=== PATIENT | female | born 1945 | race Caucasian/White ===

== ENCOUNTER 2016-11-04 08:16 | Day surgery (SDC) | payer MEDICARE ==
[~2016-11-04] VITALS: Ht 170.2 cm; Wt 95.9 kg
[2016-11-04] VITALS (9 sets, daily range): BP systolic 135–145; BP diastolic 16–94; PULSE 4–66; RESP 10–18; O2SAT 93–98
[2016-11-04] MEDS: Lactated Ringer's 1,000 ML IV SCH ×3 (07:35→10:08)
[~2016-11-04 08:16] MED LIST: ASPI-973 PO; TRIA1CAP5 PO
[2016-11-04] MEDS ORDERED: Ondansetron 2 mg/mL 2 mL Inj ONE (08:17)
[2016-11-04] MEDS ORDERED: fentaNYL-PF 50 mCg/mL 2 mL Inj ONE (08:17)
[2016-11-04] MEDS ORDERED: MetoCLOpramide 5 mg/mL 2 mL Inj ONE (08:17)
[2016-11-04] MEDS ORDERED: EPHEDrine/NS 5 mg/mL 5 mL Syringe ONE (08:17)
[2016-11-04] MEDS ORDERED: Propofol 10,000 mCg/mL 20 mL Inj ONE (08:17)
[2016-11-04] MEDS ORDERED: IBUP1TAB10 PO (08:30)
[2016-11-04 09:01] LABS: BASOPHILS % (AUTO) 0.3 % (0-3); EOSINOPHILS % (AUTO) 1.2 % (0-5); MONOCYTES % (AUTO) 4.8 % (4-12); Mean Corpuscular Hemoglobin 30.2 pg (27.0-35.0); Mean Corpuscular Volume 89.1 fL (81-100); NEUTROPHILS % (AUTO) 66.8 % (40-74); Platelet Count 243 bil/L (150-400)
[2016-11-04] MEDS ORDERED: Lactated Ringer's 1,000 ML IV SCH (10:19)
[2016-11-04] MEDS ORDERED: Lactated Ringer's 500 ML IV PRN (10:19)
[2016-11-04] MEDS ORDERED: MetoCLOpramide 5 mg/mL 2 mL Inj IVPUSH PRN ×2 (10:20→11:05)
[2016-11-04] MEDS ORDERED: Labetalol 5 mg/mL 4 mL Inj IV PRN (10:20)
[2016-11-04] MEDS ORDERED: Phenylephrine 10,000 mCg/mL Inj IVPUSH PRN (10:20)
[2016-11-04] MEDS ORDERED: HYDROmorphone 1 mg/mL Inj IVPUSH PRN ×2 (10:20→11:05)
[2016-11-04] MEDS ORDERED: Atropine 0.4 mg/mL Inj IVPUSH PRN (10:20)
[2016-11-04] MEDS ORDERED: EPHEDrine Sulfate 50 mg/mL Inj IVPUSH PRN (10:20)
[2016-11-04] MEDS ORDERED: Ondansetron 2 mg/mL 2 mL Inj IVPUSH PRN ×2 (10:20→11:05)
[2016-11-04] MEDS ORDERED: fentaNYL-PF 50 mCg/mL 2 mL Inj IVPUSH PRN (10:20)
--- NOTE | 2016-11-04 10:23 | PCM.HPANE ---
Patient Data Surgeon Admitting Provider: Attending Provider:Nicole Warren MD Primary Care Physician:Jayesh Rawls MD Other Provider:Linda Boltoningham Anesthesia Reason for Visit Postmenopausal Bleeding Ht/WT & BMI Height (Feet): 5 Height (Inches): 7.00 Weight (Kilograms): 95.9 Body Mass Index 33.00 Allergies Coded Allergies: latex (Verified Allergy, Unknown, UNKNOWN, 11/02/16) omeprazole (Verified Allergy, Unknown, UNKNOWN, 11/02/16) Past Anesthesia History Anesthesia History: Denies:: Abnormal Airway, Anesthesia Reactions, Difficult Intubation, Fam Anesthesia Reaction, Fam Malignant Hypertherm, Malignant Hyperthermia Diabetes History Hx Diabetes?: No Current Bedside Blood Glucose: 126 MRSA MRSA: No Medications Home Meds Incl Beta Elton: No Reported Medications Ibuprofen/Diphenhydramine Cit (Advil Pm Caplet)1 Each Tablet1 Each PO 11/04/16 Triamterene/HCTZ 37.5-25 mg 1 Each Capsule1 Capsule PO DAILY Ref 0 11/01/16 Aspirin 81 Mg [id number] Mg PO DAILY Ref 0 11/01/16 Discontinued Reported Medications Silver Sulfadiazine 400 Gm Cream..g.400 Gm TP BID PRN PRN 1% 11/02/[address] (Protonix)40 Mg Stjjfm01 Mg PO DAILY Ref 0 11/02/16 Potassium Chloride 10 Meq Tab.er.prt10 Meq PO DAILY 30 Days Ref 0 TAKE WITH FOOD 11/02/16 Albuterol HFA (Proair HFA)8.5 Gm Hfa.aer.ad2 Puffs INHALATION Q4H PRN PRN #1 INHALER 11/02/16 History History of ENT Problems?: No HEENT History: Denies:: Abnormal Airway Cataracts Difficult Intubation Dysphagia Glaucoma Hearing Problem Sinus Problem TMJ Denture Type: None Teeth Condition: Within Normal Limits Hx of Heart Problems?: Yes Cardiovascular History: Positive for:: Heart Murmur (GR II/ ANSHUL) Peripheral Vascular (LE VARICOSITIES) Denies:: Hypertension Hx of Respiratory Problem?: Yes Respiratory History: Positive for:: Chest Surgery (S/P EXC CHEST WALL LESION ( ?BENIGN LUNG CYST?)-POSTERIOR APPROACH) Pulmonary Embolism (1998) Denies:: Use of C-PAP Machine Hx Neurologic Problems?: No Hx of GI Problems?: Yes Other GI Pertinent History: SMALL UMBILICAL HERNIA NOTED HX PANCREATIC CYSTS-STABLE Hx of Problems?: Yes Genitourinary History: Positive for:: Urinary Tract Infection (RECENT UTI- TREATED) Other Pertinent History: Female Hx: Denies:: Currently (S/P HYSTEROSCOPY,MYOMECTOMY) Problems with Breasts? Skin History: Denies:: History Skin Disorders? Pressure Ulcers Hx Musculoskeletal Problems?: Yes Musculoskeletal History: Positive for:: Degenerative Joint Joint Replacement (S/P LT TKA) Osteoarthritis Hx of Psycho/Social Problems?: No Hx Surgeries?: Yes (HYSTEROSCOPY/MYOMECTOMY,SAMANTHA,LT TKA,EXC CHE4ST WALL MASS) Hx Any Other Health Problems?: Yes Other History: Denies:: Cancer Endocrine Disease Hospitalization Thyroid Disease Hx Diabetes: NoBedside Blood Glucose: 126 Hx Alcohol Use: NoHave You Smoked inLast 12 mo: No Stop/Bang S-Snoring: Do You Snore Loudly: No T-Tired: feel tired, fatigued: No O-Obsered: Observed not breath: No P-Blood Pressure: treated: No B- Body Mass Index > 35 kg/m2: No A- Age over 50: Yes N- Neck Large Circumference: No G- Gender Male: No AMY Total Score: 1 Risk Assessment Category Category 1A: Patient has history of documented sleep apnea, and HAS NOT received any narcotic, sedative or anesthesia administration during this stay. Category 1B: Patient has history of documented sleep apnea, and HAS received any narcotic , sedative or anesthesia administration during this stay Category 2: Patient has SUSPECTED Obstructive Sleep Apnea, and HAS received any narcotic , sedative or anesthesia administration during this stay. Category 3: Patient has SUSPECTED Obstructive Sleep Apnea and HAS NOT received narcotic, sedative or anesthesia administration during this stay. Category 4: Outpatient in Procedural Areas with known sleep apnea or who screen positive for High Risk via the STOP/BANG questionnaire. Exam Exam Vital Signs Vital Signs Date Time Temp Pulse Resp B/P Pulse Ox O2 Delivery O2 Flow Rate FiO2 11/04/16 08:40 36.0 66 18 144/59 97 Room Air General Appearance: Alert, Oriented X3, Cooperative, No Acute Distress HEENT/AIRWAY: MP 2, Neck Movement (FROM), Mouth Opening (3 FBMO) Lungs: Clear to Auscultation, Normal Air Movement Heart: Exam Unremarkable, Regular Rate/Rhythm, No Murmurs/Rubs/Gallops Meds/Labs/Diagnostics Admission Meds Current Medications Lactated Ringer's (Lr) 1,000 ml @ 120 mls/hr Q8H20M IV Last administered on t 08:20; Start 11/04/16 at 05:00; Stop 11/04/16 at 13:19 Bedside Blood Glucose: 126 Labs Test 11/04/16 08:57 White Blood Count 7.7th/mm3 (3.8-10.1) Red Blood Count 4.87mil/mm3 (3.90-5.20) Hemoglobin 14.7g/dL (12.0-15.6) Hematocrit 43.4% (35.0-46.0) Mean Corpuscular Volume 89.1fL (81-100) Mean Corpuscular Hemoglobin 30.2pg (27.0-35.0) Mean Corpuscular Hemoglobin Concent 33.9% (32.0-37.0) Red Cell Distribution Width 13.5% (12.3-15.4) Platelet Count 243bil/L (150-400) Neutrophils (%) (Auto) 66.8% (40-74) Lymphocytes (%) (Auto) 26.8% (14-46) Monocytes (%) (Auto) 4.8% (4-12) Eosinophils (%) (Auto) 1.2% (0-5) Basophils (%) (Auto) 0.3% (0-3) Plan Impression Patient chart reviewed, patient interviewed and anesthestic plan with risks, benefits, and alternatives discussed, and informed consent obtained. NPO per Anesth. Guidelines: Yes ASA Physical Status: ASA2 Mod Systemic Disease Anesthetic Plan: GA Bene/Risks/Altern/Consents: Yes HP Complete Prior to Induction: Yes Jomar Hickey MD November 04, 2016 09:20
[2016-11-04] MEDS ORDERED: diphenhydrAMINE 25 mg Capsule PO PRN (11:05)
[2016-11-04] MEDS ORDERED: oxyCODONE-Acetamin 5-325 mg Tablet PO PRN (11:05)
--- NOTE | 2016-11-04 11:06 | PCM.DIGYN ---
Surgical Discharge Instruction Dates of Hospitalization Date of Hospital Admission Providers Admitting Physician: Primary Care Physician: Jayesh Rawls MD Attending Physician: Nicole Warren MD Diagnosis at Time of Discharge Diagnosis at time of discharge Postmenopausal bleeding, endometrial polyps Problems: Diet Discharge Diet: No restrictions Activity Discharge Activity-General: Balance rest and activity, Activity as pain allows , No lifting >15 pounds for 2 weeks, No driving while taking narcotic, Other ( Pelvic rest until bleeding stops postoperatively) Dressing and Incisional Care Hygiene: May shower, NO bathtub, hot tub or whirlpool Additional Instructions Discharge Instructions You have had an uncomplicated hysteroscopy with polypectomy and curettage. There were multiple polyps within the uterine cavity which were removed. I will contact you when pathology results are available. Please call with severe pain, fever greater than 100.5 degrees, heavy vaginal bleeding. Follow Up Plan Follow-up appointment: Weeks (2) Call your provider for: Fever, Chills, Shortness of breath, Heavy vaginal bleeding, Increasing pain Nicole Warren MD November 04, 2016 11:06
[2016-11-04] MEDS ORDERED: IBUP800T28 PO (11:07)
[2016-11-04] MEDS ORDERED: OXYC1TAB24 PO (11:07)
--- NOTE | 2016-11-04 12:16 | PCM.ANEP1 ---
Post Anesthesia Phase 1 PACU Phase 1 Assessment Vital Signs Vital Signs Date Time Temp Pulse Resp B/P Pulse Ox O2 Delivery O2 Flow Rate FiO2 11/04/16 12:00 60 16 135/78 95 Room Air 11/04/16 11:40 56 16 138/78 95 Room Air 11/04/16 11:30 60 13 145/94 95 Room Air 11/04/16 11:25 60 10 143/87 95 Room Air 11/04/16 11:15 66 15 143/82 94 Room Air 11/04/16 11:10 64 11 143/81 96 Room Air 11/04/16 11:05 66 15 138/16 93 Room Air 11/04/16 11:00 36.4 65 14 145/89 98 Simple Mask 8 11/04/16 08:40 36.0 66 18 144/59 97 Room Air Anesthetic Administered: GA Level of Alertness: Awake, talking FRANCISCO's with Equal Strength: Yes Pain: No Nausea or Vomiting: No Cardiovascular Function and Hy: No Oxygen Delivery: Room Air Lungs: Clear to Auscultation, Normal Air Movement Dermatome Level: Full Sensation Complications: No Follow up Care: No Jomar Hickey MD November 04, 2016 12:16
--- NOTE | 2016-11-04 13:09 | OP ---
[address] [address] OPERATIVE REPORT PATIENT: DAVE COLLINS : 1945 MR#: [id number] ADMIT: 11/04/2016 JOB ID: [id number] DATE OF SURGERY: 11/04/2016 PREOPERATIVE DIAGNOSIS(ES): Postmenopausal bleeding. POSTOPERATIVE DIAGNOSIS(ES): Postmenopausal bleeding with endometrial polyp. PROCEDURE PERFORMED: Hysteroscopy with MyoSure polypectomy and dilation and curettage. SURGEON: Nicole Warren MD. ANESTHESIA: General endotracheal anesthesia. ESTIMATED BLOOD LOSS: 10 cc. FLUID REPLACEMENT: 700 cc of crystalloid. FINDINGS: A 9 cm sized uterus with multiple endometrial polyps. Normal-appearing ostia bilaterally. Some abnormal vasculature noted at the uterine fundus with vessel thickening, as well as areas of tissue discoloration with darkening, concerning for abnormal changes. Grade 4 cystocele present with grade 3 uterine prolapse. COMPLICATIONS: None apparent. INDICATIONS: This is a 70-year-old female who presented to our clinic in evaluation for postmenopausal bleeding. She had postmenopausal bleeding in the past and had previously in [place] underground hysteroscopy with polypectomy which returned with endometrial polyps with some hyperplasia; however, no malignancy was identified. She had been on hormone replacement therapy as well, and when she presented to my clinic for continued postmenopausal bleeding, I recommended discontinuation of this and to proceed with a repeat hysteroscopy with polypectomy as she was also noted to have a thickened endometrial stripe on her ultrasound. Risks, benefits, and alternatives were discussed with her beforehand. She was referred back to her primary care provider for surgical clearance as she had a history of an unprovoked pulmonary embolism in the past. PROCEDURE: The patient was taken to the operating room. She was placed in dorsal lithotomy position. She was prepped and draped in the usual sterile fashion. A bivalve speculum was placed and she was noted to have a grade 4 cystocele and a grade 3 uterine prolapse, so her cervix was then grasped with an Allis clamp and was noted to be essentially at the introitus and was serially dilated to allow for a size 6 dilator. She sounded to 9 cm and then the MyoSure hysteroscope was then inserted. She was noted to have multiple polyps within her endometrial cavity and some discoloration of the endometrial tissue. Using the MyoSure operative channel, polypectomy was then completed until her ostia were able to be visualized bilaterally and her endometrial cavity was noted to be cleared of her multiple polyps. After removal of the polyps her uterine lining was noted to be very thin and the hysteroscope was then removed and a sharp curettage was completed until a gritty cry was felt around the entirety of the uterine cavity. At this point in time, the procedure was completed. The Allis was removed from the cervix. The patient tolerated this procedure well. Recovered in PACU. All sponge, needle, and instrument counts were correct.
--- NOTE | 2016-11-08 09:37 | PATH ---
SURGICAL PATHOLOGY Attending Physician:Nicole Warren, CASE STATUS: Signed Out PATIENT NAME: DAVE COLLINS PID: [id number] : 1945 DATE COLLECTED:11/04/2016 22:41 SPECIMEN: Endometrium, Curettage CLINICAL HISTORY: POSTMENOPAUSAL BLEEDING 1). ENDOMETRIAL POLYPS & CURETTINGS FINAL DIAGNOSIS: Endometrial Curettings: Complex endometrial hyperplasia with cytologic atypia (please see comment). ICD10: N85.02 NOTE: Foci of complex atypical hyperplasia are found in a background of disordered proliferative endometrium. Additionally, I cannot absolutely rule out the presence of a well-differentiated villoglandular endometrial adenocarcinoma. Careful followup is recommended. GROSS DESCRIPTION: The specimen is received in one formalin filled container labeled with the patient's name, sublabeled "endometrial polyps and curettings" and consists of multiple portions of tissue and blood which aggregate to 5.5 x 3.0 x 0.6 CM. The specimen is entirely submitted in 4 cassettes. 11/04/2016 DAC ICD-9 CODES: CPT CODES: 1: 74373 PROCEDURE/ADDENDA: Addendum SPI Addendum Diagnosis Portions of endometrial polyps with areas of atypical complex endometrial hyperplasia. Addendum Comment For complete details see [facility] - Department of Pathology's original report [id number]. Electronically Signed Out Yvon Villaseñor MD Electronically Signed Out Yvon Villaseñor MD [facility] Pathology [facility] [address], [place] [address] Technical component performed at [facility], [facility] [address], [place], [address]
== END 2016-11-04 23:59 | disposition home or self-care (01) ==
LOC: SAS 08:16
PROVIDERS: ATTEND Obstetrics & Gynecology
DX: N85.02 Endometrial intraepithelial neoplasia [EIN] (principal); N95.0 Postmenopausal bleeding; K21.9 Gastro-esophageal reflux disease without esophagitis; Z86.711 Personal history of pulmonary embolism; Z79.82 Long term (current) use of aspirin
CPT/HCPCS: 36415; 58558; 85025; J1885; J2405; J2765; J3010; J7120

== ENCOUNTER 2016-11-26 09:43 | Emergency (ER) | payer MEDICARE ==
[~2016-11-26] VITALS: Ht 167.6 cm; Wt 95.9 kg
[~2016-11-26 09:43] MED LIST changes: +IBUP1TAB10 PO; +IBUP800T28 PO; +OXYC1TAB24 PO
--- NOTE | 2016-11-26 09:44 | ED.REPORT ---
HPI-Extremity Problem Lower Date of Service November 26, 2016 ED Provider: Dr. Migel Roca MD Patient is a 71 year old female with a history of osteoarthritis s/p left TKR and degenerative joint disease who presents to the ED with right knee pain secondary to an injury that occurred last night. Patient was reportedly sitting in a folding chair that collapsed onto her leg and has been unable to bear weight since the incident. She rates her current pain as a 5/10. Patient denies any numbness/tingling in the lower extremities or bowel/bladder incontinence. Nursing Notes Stated Complaint: RIGHT KNEE PAIN Nursing Notes Reviewed: Yes Allergies: Coded Allergies: latex (Verified Allergy, Unknown, UNKNOWN, 11/02/16) omeprazole (Verified Allergy, Unknown, UNKNOWN, 11/02/16) Scheduled Aspirin (Aspirin) 81 Mg Tablet 81 MG PO DAILY Triamterene/HCTZ 37.5-25 mg (Triamterene/HCTZ 37.5-25 mg) 1 Each Capsule 1 CAPSULE PO DAILY Scheduled PRN Ibuprofen (Ibuprofen) 800 Mg Tablet 800 MG PO TID PRN PRN For Pain oxyCODONE-Acetaminophen 5-325 mg (oxyCODONE-Acetaminophen 5-325 mg) 1 Each Tablet 1-2 TAB PO Q6H PRN PRN For Pain Miscellaneous Medications Ibuprofen/Diphenhydramine Cit (Advil Pm Caplet) 1 Each Tablet 1 EACH PO General Time Seen by MD: 09:44 Chief Complaint Knee injury right Hx Obtained From: Patient Arrived By: Walk-in Onset Occurred: Yesterday Symptom Duration: Since onset Caused by: Accidental Location: : Knee right Quality: Painful Severity: Current: Moderate Severity: Maximum: Moderate Associated with: Reports: Unable to bear weight, Denies: Numb extremities Pertinent Negative: Pt denies other symptoms Recent Healthcare: No recent doctor visit, No recent hospitalization Past Medical History Past Medical History 1. PVD 2. Degenerative Joint 3. Osteoarthritis 4. PE (1998) 5. Chronic lower extremity edema Past Surgical History Joint Replacement Hysteroscopy with MyoSure polypectomy + D&C Chest Surgery Smoking History Unknown if Ever Smoker Social History Other Social History: Good social support, Ambulatory Status Independent Review of Systems Pain with weight bearing Constitutional: Denies: Chills, Fever Musculoskeletal: Reports: Joint pain (Right knee pain), Denies: Back pain Neurologic: Denies: Change LOC, Numbness Complete sys rev & neg: except as marked. Female: Denies: Incontinence Physical Exam Initial Vital Signs Vital Signs (First) Date Time Temp Pulse Resp B/P Pulse Ox O2 Delivery O2 Flow Rate FiO2 11/26/16 09:56 36.1 82 18 137/77 97 Room Air Initial VS: Reviewed Head / Eyes: Atraumatic, Normocephalic, PERRL Neck: Supple, Non-tender, Full range of motion Upper Extremities: Vascular intact, Neuro intact, No swelling, No tenderness Skin: Warm, Dry, No cyanosis Neurologic: Alert, Oriented, Nonfocal Psychiatric: Mood/affect normal, Behavior normal, Normal thought content Lower Extremity / Pelvis / MS: Neurologic intact, Vascular intact Lower Ext Brief Normals: Knee L exam normal Right Knee: Positive: Tenderness present... (posteriorly in superior medial spect of the knee ), Negative: Anterior drawer test pos, Joint effusion present, ROM painful, ROM reduced, Warmth present LOWER EXTREMITITES: Posterior drawer test - pain no laxity Ankle / Foot: Atraumatic, Inspection NL, Neurologic intact, Vascular intact General/Constitutional: Awake, Alert, No acute distress Respiratory / Chest: Atraumatic, Breath sounds NL, Breath sounds = bilat, No respiratory distress Cardiovascular: Heart rate NL, Regular rhythm, Heart sounds NL CARDIO: Bilateral edema in the legs (chronic) Interpretation & Diagnostics X-Ray Interpretation Xray Interpretation: IMPRESSION: Osteoarthritis. No acute fracture. No osseous lesion. If clinical suspicion and/or symptoms persist, further assessment with repeat plainfilms, or advanced imaging (e.g., CT, MRI, or bone scan) may be helpful for further assessment. Dictated by: Cem Hunt M.D. on 11/26/2016 at 10:24 X-Ray Ordered: Knee right Interpretation / Wet Read by: Interpret - Radiologist Re-Eval/Medical Decision Re-Evaluation/Progress #1: Time of Eval: 09:51 Patient Status: Condition improved Re-Evaluation/Progress Note: Further exam is performed. All of her questions are addressed. Re-Evaluation/Progress #2: Time of Eval: 10:48 Patient Status: Condition improved Re-Evaluation/Progress Note: Patient is rechecked and is resting comfortably. She understands and agrees with the intended treatment plan. Re-Evaluation/Progress #3: Time of Eval: 11:45 Patient Status: Condition improved, Pain improved Re-Evaluation/Progress Note: Pt's pain has improved and she is learning how to use the walker. Pain management is discussed. Counseled Regarding: Diagnosis, Need for follow-up, When/why to return to ED Discharge & Departure Impression: Primary Impression: Internal derangement of knee Laterality: right Qualified Code: M23.91 - Unspecified internal derangement of right knee Disposition: Home Discharge Condition All VS Reviewed: Yes Condition: Improved Patient Instructions: Knee Sprain (ED), Osteoarthritis (ED) Additional Instructions: Thank you for trusting us with your care this morning. Your emergency department results today including examination and right knee X- ray are reassuring that there is no fracture and your pain is likely due to a soft tissue injury, possibly a meniscal injury and your osteoarthritis. The pain should resolve within the next 2-3 weeks If pain persists, I recommend you follow up with an orthopedic surgeon (see referral) in the next week. [place] I would recommend: [place] or [place]. Use crushed ice intermittently for pain. Do not leave the ice pack on for longer than 30-40 minutes at a time. Use the walker to help relieve your pain and prevent further strain. Please take 800 mg (4-200mg tablets) of ibuprofen every 8 hours and 1000mg of Tylenol every 6 hours for pain. Please return to the emergency department if you develop any new or worsening symptoms including any worsening pain, swelling, redness or any numbness/ tingling. Referrals: Jayesh Rawls MD (PCP) Mickey Feldman MD, Curtis W MD [facility] Scribe Attestation Portions of this note were transcribed by Donn Gibson. I, Dr. Roca personally performed the history, physical exam and medical decision-making; I reviewed and confirmed the accuracy of the information in the transcribed note. Signed by: Cheyenne Kessler, 11/26/16 3509. copies to: Jayesh Rawls MD, Kirk H MD November 26, 2016 09:44 DONN GIBSON November 26, 2016 09:51 DONN GIBSON November 26, 2016 09:51
[2016-11-26 09:56] VITALS: BP 137/77; PULSE 82; RESP 18; O2SAT 97
--- NOTE | 2016-11-26 10:26 | DRSVH ---
PROCEDURE: X-RAY RIGHT KNEE, THREE VIEWS ([id number]) INDICATIONS: trauma TECHNIQUE: 3 views of the knee were acquired. COMPARISON: None. FINDINGS: Bones: No fractures or dislocations. No suspicious bony lesions. Severe tricompartmental periarticu lar osteophyte formation. Lateral patellar subluxation. Soft tissues: No joint effusion. No suspicious soft tissue calcifications. IMPRESSION: Osteoarthritis. No acute fracture. No osseous lesion. If clinical suspicion and/or sympto ms persist, further assessment with repeat plainfilms, or advanced imaging (e.g., CT, MRI, or bone sc an) may be helpful for further assessment. Dictated by: Cem Hunt M.D. on 11/26/2016 at 10:24 Approved by: Cem Hunt M.D. on 11/26/2016 at 10:24
[2016-11-26 12:20] VITALS: BP 130/74; PULSE 80; RESP 18; O2SAT 97
== END 2016-11-26 12:21 | disposition home or self-care (01) ==
LOC: SED 09:43
DX: M23.8X1 Other internal derangements of right knee (principal); W22.8XXA Striking against or struck by other objects, initial encounter; Y93.89 Activity, other specified; Y92.89 Other specified places as the place of occurrence of the external cause; Y99.8 Other external cause status; Z79.82 Long term (current) use of aspirin; Z96.652 Presence of left artificial knee joint; Z91.040 Latex allergy status; Z88.8 Allergy status to other drugs, medicaments and biological substances